=== PATIENT | male | born 1985 | race Caucasian/White ===

== ENCOUNTER 2020-12-28 14:16 | Outpatient (CLI) | payer OTHER ==
--- NOTE | 2020-12-28 18:54 | Ultrasound Report ---
PROCEDURE: Testicle INDICATIONS: SPERMATOCELE OF EPIDIDYMIS TECHNIQUE: Real-time scanning was performed of the scrotum and testicles, with image documentation. Color and p ulse Doppler interrogation was performed of both testicles. COMPARISON: None. FINDINGS: Right: Testicle is normal in size at 4.7 x 2.1 x 3.1 cm, and homogenous in echotexture. Epididymis is normal in overall size and morphology. Right epididymal head cyst measuring 4 mm. No hydrocele or varicoceles. Overlying scrotal skin is normal in thickness. At the patient directed palpable area of concern near the inferior aspect of the right testicle, there is a 0.5 x 0.3 x 0.7 cm cyst. Left: Testicle is normal in size at 4.4 x 2.3 x 2.5 cm, and homogeneous in echotexture. Epididymis is normal in overall size and morphology. No hydrocele or varicoceles. Overlying scrotal skin is no rmal in thickness. Doppler: Color and pulse Doppler demonstrate normal and symmetric arterial flow in both testicles. IMPRESSION: 1. Normal sonographic evaluation of the bilateral testicles. 2. Probable area of patient concern correlates with a 7 mm cyst adjacent to the inferior aspect of th e right testicle. Findings may represent a spermatocele. No associated vascularity or solid component s. Reviewed by: Chilo Owen MD on 12/28/2020 5:53 PM VIVEK Approved by: Chilo Owen MD on 12/28/2020 5:53 PM VIVEK Station ID: [id number]
== END 2020-12-28 14:17 | disposition home or self-care (01) ==
LOC: DI 14:16
PROVIDERS: ATTEND Physician Assistant Medical
DX: N43.40 Spermatocele of epididymis, unspecified (principal)